=== PATIENT | male | born 1960 | race Caucasian/White ===

== ENCOUNTER → 2018-10-30 | Outpatient (CLI) | payer BC ==
[~2018-10-30] MED LIST: ASP81TEC PO; CALC-196 PO; CFR250T PO; CHOL200018 PO; FISH1CAP15 PO; HYDR1TAB PO; NIA500ERT PO; OMEP20TA2 PO; PRD1T PO; RED600TA PO; SIMV10TA3 PO; UBID10CA8 PO
--- NOTE | 2018-10-30 14:12 | Diagnostic Imaging Report ---
PROCEDURE: MR imaging cervical spine without contrast. TECHNIQUE: Multiplanar, multisequence MR imaging of the cervical spine was performed without contrast. INDICATION: Neck pain and stiffness. COMPARISON: No prior examinations are available for comparison. FINDINGS: The alignment of the cervical spine is normal. The vertebral body heights are well-maintained. The prevertebral soft tissues are within normal limits. The posterior fossa is unremarkable. The visualized portions of the spinal cord are normal signal intensity and morphology. C2-C3 is unremarkable. At C3-C4, there is some broad-based annular bulging as well as some spurring of the uncovertebral joints bilaterally. There is a posterior facet arthropathy. There is moderate spinal stenosis as well as wzlbpyyc-ya-tfudoq bilateral neural foraminal encroachment. At C4-C5, there is minimal annular bulging and some spurring of the uncovertebral joint on the left. There is slight effacement of the ventral thecal sac with moderate left neural foraminal encroachment. At C5-C6, there is minimal annular bulging and mild bilateral uncovertebral joint spurring. There is slight effacement of ventral thecal sac and hcny-ci-dzjmksfa neural foraminal encroachment. C6-C7 and C7-T1 are unremarkable. IMPRESSION: Cervical spondylosis and degenerative disc disease as described. Dictated by: Dictated on workstation # [id number]
== END ==
LOC: RAD 12:48
PROVIDERS: ATTEND Orthopaedic Surgery
DX: M50.10 Cervical disc disorder with radiculopathy, unspecified cervical region (principal); M47.22 Other spondylosis with radiculopathy, cervical region
CPT/HCPCS: 72141

== ENCOUNTER → 2019-01-07 | Outpatient (CLI) | payer BC ==
[2019-01-07 15:13] LABS: HEMATOCRIT 42 % (40-54); HEMOGLOBIN 14.4 G/DL (13.3-17.7); MEAN CORPUSCULAR HEMOGLOBIN 31 PG (25-34); MEAN CORPUSCULAR HGB CONC 35 G/DL (32-36); MEAN CORPUSCULAR VOLUME 89 FL (80-99); MEAN PLATELET VOLUME 9.3 FL (7.4-10.4); NEUTROPHILS % (AUTO) 51 % (42-75); PLATELET COUNT 276 10^3/uL (130-400); RED CELL DISTRIBUTION WIDTH 12.7 % (10.0-14.5)
[2019-01-07 15:14] LABS: BASOPHILS % (AUTO) 1 % (0-10); EOSINOPHILS # (AUTO) 0.1 10^3/uL (0.0-0.3); EOSINOPHILS % (AUTO) 1 % (0-10); LYMPHOCYTES # (AUTO) 2.6 X 10^3 (1.0-4.0); LYMPHOCYTES % (AUTO) 37 % (12-44); MONOCYTES # (AUTO) 0.7 X 10^3 (0.0-1.0); MONOCYTES % (AUTO) 10 % (0-12); NEUTROPHILS # (AUTO) 3.7 X 10^3 (1.8-7.8)
== END ==
LOC: LAB FS 15:03
PROVIDERS: ATTEND Family Medicine
DX: Z00.00 Encounter for general adult medical examination without abnormal findings (principal); D69.6 Thrombocytopenia, unspecified
CPT/HCPCS: 36415; 85025

== ENCOUNTER 2020-02-05 05:58 | Outpatient (RCR) | payer BC ==
[~2020-02-05] VITALS: Ht 175.3 cm; Wt 75.8 kg
[2020-02-05] MEDS ORDERED: FAMO20TA3 PO (10:38)
[2020-02-05] MEDS ORDERED: CHOL200014 PO (10:38)
[2020-02-05] MEDS ORDERED: OMEP20TA7 PO (10:38)
[2020-02-05] MEDS ORDERED: ASPI-999 PO (10:38)
== END 2020-02-09 11:09 | disposition home or self-care (01) ==
LOC: PREOP 05:58
PROVIDERS: ATTEND Surgery
DX: Z01.818 Encounter for other preprocedural examination (principal)

== ENCOUNTER → 2020-02-06 | Outpatient (CLI) | payer BC ==
[~2020-02-06] MED LIST changes: +ASPI-999 PO; +CHOL200014 PO; +FAMO20TA3 PO; +OMEP20TA7 PO; +OMEP40CA27 PO
== END ==
LOC: LAB FS 10:20
PROVIDERS: ATTEND Family Medicine
DX: K27.9 Peptic ulcer, site unspecified, unspecified as acute or chronic, without hemorrhage or perforation (principal); K21.9 Gastro-esophageal reflux disease without esophagitis; Z20.828 Contact with and (suspected) exposure to other viral communicable diseases
CPT/HCPCS: 87635

== ENCOUNTER 2020-02-11 10:17 | Day surgery (SDC) | payer BC ==
[~2020-02-11] VITALS: Ht 175.3 cm; Wt 75.8 kg
[~2020-02-11 10:17] MED LIST changes: -OMEP40CA27 PO
[2020-02-11] MEDS ORDERED: LACTATED RINGERS 1,000 ML IV ONE (10:21)
[2020-02-11] MEDS ORDERED: LACTATED RINGERS 1,000 ML IV STA (10:21)
[2020-02-11] MEDS ORDERED: HURRICAINE EXT TUBE (BENZOCAINE) XX PRN (10:30)
[2020-02-11] MEDS ORDERED: LIDOCAINE JELLY 2% 6 ML SYRINGE MM PRN (10:30)
--- NOTE | 2020-02-11 10:32 | Progress Note-Pre Operative ---
Pre-Operative Progress Note H&P Reviewed The H&P was reviewed, patient examined and no changes noted. Date Seen by Provider: Feb 11, 2020 Time Seen by Provider: 10: Date H&P Reviewed: Feb 11, 2020 Time H&P Reviewed: : Pre-Operative Diagnosis: GERD, rectal bleed, screening RHIANNON VILLA MD Feb 11, 2020 10:32
[2020-02-11 10:33] VITALS: BP 143/85
[2020-02-11] MEDS ORDERED: OMEP40CA27 PO (10:34)
--- NOTE | 2020-02-11 10:35 | Discharge Inst-Surgical ---
D/C Lap Instructions-ALLEN New, Converted, or Re-Newed RX: RX on Chart Follow Up Activity as tolerated High Fiber Diet 25g or more per day Avoid Alcohol, Caffeine, Spicy [place] and Acid foods. Drink 64 fluid oz or more of fluids per day. Symptoms to Report: Fever over 101 degree F, Nausea/Vomiting If any problems/questions: Contact your physician or go to Emergency Room RHIANNON VILLA MD Feb 11, 2020 10:35
[2020-02-11] MEDS ORDERED: HYDROcodone/APAP 5 MG/325 MG (LORTAB) TAB PO PRN (10:45)
[2020-02-11] MEDS ORDERED: ACETAMINOPHEN 325 MG TABLET PO PRN (10:45)
[2020-02-11] MEDS ORDERED: ONDANSETRON 4 MG/2 ML (SDV) Z0FRAN IVP PRN (10:45)
[2020-02-11] MEDS ORDERED: morphine INJ 10 MG/ML 1ML (SYR OR VIAL) IVP PRN ×2 (10:45)
--- OUTSIDE RECORDS SUMMARY | 2020-02-11 10:55 | XMS REPORT | Continuity of Care Document ---
Author Organization Unknown Address Unknown Phone Unavailable Allergies Active Description Code Type Severity Reaction Onset Reported/Identified Relationship to Patient Clinical Status Yes No Known Drug Allergies [id number] Drug Allergy Unknown N/A 09/15/2011 Medications There is no data. Problems Date Dx Coded Attending Type Code Diagnosis Diagnosed By 10/30/2018 MARCO HYLTON DO, Ot M47.22 OTHER SPONDYLOSIS WITH RADICULOPATHY, CE 10/30/2018 MARCO HYLTON DO, Ot M50.10 CERVICAL DISC DISORDER W RADICULOPATHY, 11/13/2018 MARCO HYLTON DO, Ot M47.22 OTHER SPONDYLOSIS WITH RADICULOPATHY, CE 11/13/2018 MARCO HYLTON DO, Ot M50.10 CERVICAL DISC DISORDER W RADICULOPATHY, 12/02/2018 MARCO HYLTON DO, Ot M47.22 OTHER SPONDYLOSIS WITH RADICULOPATHY, CE 12/02/2018 MARCO HYLTON DO, Ot M50.10 CERVICAL DISC DISORDER W RADICULOPATHY, 01/08/2019 SELF AMADOU OMER Ot D69.6 THROMBOCYTOPENIA, UNSPECIFIED 01/08/2019 SELF AMADOU OMER Ot Z00.00 ENCNTR FOR GENERAL ADULT MEDICAL EXAM W/ 01/27/2019 SELF AMADOU OMER Ot D69.6 THROMBOCYTOPENIA, UNSPECIFIED 01/27/2019 SELF AMADOU OMER Ot Z00.00 ENCNTR FOR GENERAL ADULT MEDICAL EXAM W/ Procedures There is no data. Results Test Result Range CBC w/MANUAL DIFF - 01/03/19 08:44 WHITE BLOOD CELL COUNT 6.1 Thousand/uL 3 .8-10.8 RED BLOOD CELL COUNT 4.86 Million/uL 4.2 0-5.80 HEMOGLOBIN 14.8 g/dL 13.2-17.1 HEMATOCRIT 43.4 % 38.5-50.0 MCV 89.3 fL 80.0-100.0 MCH 30.5 pg 27.0-33.0 MCHC 34.1 g/dL 32.0-36.0 RDW 12.9 % 11.0-15.0 PLATELET COUNT 21 Thousand/uL 140-400 MPV 10.8 fL 7.5-12.5 ABSOLUTE NEUTROPHILS 2135 cells/uL 1500- 7800 ABSOLUTE MONOCYTES 732 cells/uL 200-950 ABSOLUTE EOSINOPHILS 0 cells/uL 15-500 ABSOLUTE BASOPHILS 305 cells/uL 0-200 NEUTROPHILS 35.0 % NRG LYMPHOCYTES 46.0 % NRG MONOCYTES 12.0 % NRG EOSINOPHILS 0 % NRG BASOPHILS 5.0 % NRG ABSOLUTE BAND NEUTROPHILS 122 cells/uL 0 -750 ABSOLUTE LYMPHOCYTES 2806 cells/uL 850-3 900 BAND NEUTROPHILS 2.0 % NRG COMMENT(S) NRG Complete blood count (CBC) with automate d white blood cell (WBC) differential - 01/07/19 15:00 Blood leukocytes automated count (number/volume) 8.0 10*3/uL 4.3-11.0 Blood erythrocytes automated count (number/volume) 4.70 10*6/uL 4.35-5.85 Venous blood hemoglobin measurement (mass/volume) 14.4 g/dL 13.3-17.7 Blood hematocrit (volume fraction) 42 % 40-54 Automated erythrocyte mean corpuscular volume 89 [ foz_us] 80-99 Automated erythrocyte mean corpuscular h emoglobin (mass per erythrocyte) 31 pg 25-34 Automated erythrocyte mean corpuscular h emoglobin concentration measurement (mass/volume) 35 g/dL 32-36 Automated erythrocyte distribution width ratio 12. 7 % 10.0- 14.5 Automated blood platelet count (count/volume) 276 10*3/uL 130-400 Automated blood platelet mean volume measurement 9.3 [foz_us] 7.4-10.4 Automated blood neutrophils/100 leukocytes 51 % 42-75 Automated blood lymphocytes/100 leukocytes 37 % 12-44 Blood monocytes/100 leukocytes 10 % 0-12 Automated blood eosinophils/100 leukocytes 1 % 0-10 Automated blood basophils/100 leukocytes 1 % 0-10 Blood neutrophils automated count (number/volume) 3.7 10*3 1.8-7.8 Blood lymphocytes automated count (number/volume) 2.6 10*3 1.0-4.0 Blood monocytes automated count (number/volume) 0. 7 10*3 0.0-1.0 Automated eosinophil count 0.1 10*3/uL 0 .0-0.3 Automated blood basophil count (count/volume) 0.0 10*3/uL 0.0-0.1 Encounters ACCT No. Visit Date/Time Discharge Status Pt. Type Provider Facility Loc./Unit Complaint [id number] 01/07/2019 13:45:00 01/07/2019 23:59: 59 CLS Out[facility] [id number] 01/03/2019 08:15:00 Document Registration [id number] 02/05/2020 05:58:00 11:09:00 DIS Outpatient RHIANNON VILLA MD [facility] PREOP COLONOSCOPY/EGD [id number] 02/06/2020 10:20:00 23:59:59 CLS Outpatient AMADOU SEBASTIAN MD [facility] LAB FS COBID SWAB [id number] 01/07/2019 15:03:00 23:59:59 CLS Outpatient SELF AMADOU OMER [facility] LAB FS D696 [id number] 10/30/2018 12:48:00 23:59:59 CLS Outpatient MARCO HYLTON DO [facility] RAD RADICULOPATHY M54.12 [id number] 02/11/2020 11:00:00 P EN Preadmit RHIANNON VILLA MD [facility] [place] ENDO SCREENING/EPIGASTRIC PAIN/GE RD/PUD
[2020-02-11] MEDS ORDERED: HURRICAINE EXT TUBE (BENZOCAINE) ONE (11:01)
[2020-02-11] MEDS ORDERED: MIDAZOLAM 2 MG/2 ML (VERSED) VIAL ONE (11:01)
[2020-02-11] MEDS ORDERED: PROPOFOL INJECTION 50 ML IV ONE ×2 (11:01→11:26)
[2020-02-11] MEDS ORDERED: LIDOCAINE JELLY 2% 6 ML SYRINGE ONE (11:08)
[2020-02-11] MEDS ORDERED: KETAMINE/NaCl 50 MG/5 ML SYRINGE (ED ONLY) ONE (11:10)
[2020-02-11 11:45] VITALS: BP 109/68
[2020-02-11 11:50] VITALS: BP 110/69
[2020-02-11 12:20] VITALS: BP 142/92
[2020-02-11 12:35] VITALS: BP 142/92
--- NOTE | 2020-02-11 12:37 | Progress Note-Post Operative ---
Post-Operative Progess Note Surgeon (s)/[employer] (s) Surgeon RHIANNON VILLA MD [employer]: none Pre-Operative Diagnosis GERD, rectal bleed, screening Post-Operative Diagnosis reflux esophagitis(stage 2), small HH(1.5cm), moderate gastritis. chronic stage 2 ext and stage 3 int hemorrhoids. Procedure & Operative Findings Date of Procedure 02/11/20 Procedure Performed/Findings EGD with bx. Colonoscopy. Anesthesia Type mac Estimated Blood Loss Estimated blood loss (mL): minimal Specimens/Packing Specimens Removed ge jxn, antrum RHIANNON VILLA MD Feb 11, 2020 12:37
--- NOTE | 2020-02-11 14:18 | Anesthesia-General Post-Op ---
MAC Patient Condition Mental Status/LOC: Same as Preop Cardiovascular: Satisfactory Nausea/Vomiting: Absent Respiratory: Satisfactory Pain: Controlled Complications: Absent Post Op Complications Complications None Follow Up Care/Instructions Patient Instructions None needed. Anesthesiology Discharge Order Discharge Order Patient is doing well, no complaints, stable vital signs, no apparent adverse anesthesia problems. No complications reported per nursing. DAY BLANKENSHIP NET COORDINATOR Feb 11, 2020 14:18
--- NOTE | 2020-02-11 20:55 | OPERATIVE REPORT ---
DATE OF SERVICE: 02/11/2020 PREOPERATIVE DIAGNOSES: Gastroesophageal reflux disease, screening colonoscopy. Rectal bleed, screening colonoscopy. POSTOPERATIVE DIAGNOSES: Reflux esophagitis stage II, small hiatal hernia 1.5 cm in size, mild to moderate gastritis. No distal obstructions. Chronic stage II external hemorrhoids, chronic stage III internal hemorrhoids. Remainder of the rectum and colon were normal. PROCEDURE: EGD with biopsy, colonoscopy. SURGEON: Rhiannon Villa MD ANESTHESIA: Monitored anesthesia care. ESTIMATED BLOOD LOSS: Minimal. FINDINGS: Reflux esophagitis stage II, small hiatal hernia 1.5 cm in size, mild to moderate gastritis. No distal obstructions. Chronic stage II external hemorrhoids, chronic stage III internal hemorrhoids. Remainder of the rectum and colon were normal. DISPOSITION: The patient tolerated the procedure well. INDICATIONS: The patient is a 59-year-old male known to us. He has a history of gastroesophageal reflux disease and peptic ulcer disease. He reports that he has had some hypopharyngeal irritation and increased phlegm on intermittent basis. We did his last EGD and colonoscopy 12/2009 and then an EGD 07/2012 with chronic pharyngitis, reflux esophagitis as well as a mild gastritis. He states that he has had some epigastric burning sensation. He does not report any episodes of nausea, no vomiting, no hematemesis. He is currently taken omeprazole and Pepcid. He reports the caffeine, spicy, greasy and acidic foods do make his symptoms worse. He also does report that he has had some small amounts of blood in the stool. He is also in need of a followup colonoscopy due to timing. He does not report any family history of colon cancer. DESCRIPTION OF PROCEDURE: The patient was brought to the endoscopy suite, laid in the left lateral decubitus position. After adequate IV pain and sedated medications and monitored anesthesia care, the mouthpiece was applied. Endoscope was then placed in the mouth, visualized the pharynx and hypopharyngeal region. The endoscope was then intubated at the esophageal opening and esophagus insufflated. The endoscope was then advanced through the first, second and third portion of the esophagus at the level of the GE junction, a reflux esophagitis stage II identified. There were no ulcers or strictures identified in this region. A biopsy was taken with forceps with visualization of good hemostasis. The endoscope was then advanced into the stomach and endoscope retroflexed, visualizing a small hiatal hernia approximately 1.5 cm in size. There was a mild to moderate gastritis. No formal ulcerations, polyps, or any neoplasms identified. A biopsy was taken of the antrum to rule out H. pylori with visualization of good hemostasis. The endoscope was then advanced through the pylorus and the first and second portions of the duodenum, which appeared normal with no distal obstructions. The endoscope was then slowly withdrawn while taking a second look and suctioning of residual air with no additional findings. We then proceeded with the colonoscopy portion of the procedure. A digital rectal examination was performed, which revealed chronic stage II external hemorrhoids and with the endoscope in, chronic stage III internal hemorrhoids, most likely the causative agent of his intermittent rectal bleeding. No palpable masses identified and the prostate gland was palpable and appeared normal. The endoscope was then intubated to the anus and rectum gently insufflated. The endoscope was then advanced through the valves of Romero of the rectum with no polyps or any neoplasms identified. Through the sigmoid colon, there were no diverticulosis identified. The endoscope was then advanced through the remainder of the descending, transverse and ascending colon to the cecum. These segments were normal. There were no polyps or any neoplasms identified. The endoscope was then slowly withdrawn while taking a second look and suctioning of residual air with no additional findings. The patient tolerated the procedure well. We will have him proceed with the necessary lifestyle and diet accommodation for the reflux esophagitis, small hiatal hernia, which would entail small and more frequent meals, avoidance of eating at night as well as head elevation while lying supine. His PPI acid flanger may have become less effective over time and we will increase the dosing to omeprazole 40 mg daily. For his lower gastrointestinal tract and stage III internal hemorrhoids, we will recommend incorporation of high fiber diet with at least 30 grams of fiber daily as well as significant amounts of water to promote soft stools on a daily basis. If stools are consistently soft on a regular basis, the pressure throughout the rectum and anus during defecation should decrease and prevent any further bleeding. Job ID: [id number] DocumentID: [id number] Dictated Date: 02/11/2020 11:49:05 Ranch Supervisor Date: 02/11/2020 20:54:44 Dictated By: RHIANNON VILLA MD
== END 2020-02-11 12:35 | disposition home or self-care (01) ==
LOC: ENDO 10:17
PROVIDERS: ATTEND Surgery
DX: K29.50 Unspecified chronic gastritis without bleeding (principal); K21.0 Gastro-esophageal reflux disease with esophagitis; K44.9 Diaphragmatic hernia without obstruction or gangrene; K92.1 Melena; K64.1 Second degree hemorrhoids; K64.2 Third degree hemorrhoids; Z79.82 Long term (current) use of aspirin; Z79.899 Other long term (current) drug therapy; Z87.11 Personal history of peptic ulcer disease; Z83.3 Family history of diabetes mellitus; Z80.0 Family history of malignant neoplasm of digestive organs

== ENCOUNTER → 2021-07-26 | Outpatient (CLI) | payer BC ==
[~2021-07-26] MED LIST changes: +OMEP40CA6 PO
--- NOTE | 2021-07-26 12:35 | Diagnostic Imaging Report ---
INDICATION: Hyperlipidemia CT cardiac calcium scoring study performed with images of the heart without contrast, followed by calculation of cardiac scarring. Raw data images demonstrate no aortic aneurysm. There is no mediastinal adenopathy. Visualized portions of the lung dubon were clear, the entirety of the lungs are not included on the study. There was no significant coronary artery calcification. CT cardiac calcium score was 0 in all territories. IMPRESSION: Negative study. CT cardiac calcium score was 0. Dictated by: Dictated on workstation # [id number]
== END ==
LOC: RAD FS 11:03
PROVIDERS: ATTEND Family Medicine
DX: E78.5 Hyperlipidemia, unspecified (principal)
CPT/HCPCS: 75571

== ENCOUNTER 2021-08-16 18:38 | Emergency (ER) | payer BC ==
[~2021-08-16] VITALS: Ht 175 cm; Wt 74.0 kg
[2021-08-16 18:45] VITALS: BP 146/76
--- NOTE | 2021-08-16 19:37 | ED Cardiac General ---
History of Present Illness General Chief Complaint: Cardiac/General Problems Stated Complaint: IRR HEART RATE Nursing Triage Note: ARRIVED VIA AMB TO ROOM 08 WITH PALPITATIONS X2 DAYS. COMPLAINS OF A ACHE IN UPPER LEFT CHEST. Source: patient Exam Limitations: no limitations History of Present Illness Date Seen by Provider: Aug 16, 2021 Time Seen by Provider: 19:13 Initial Comments Patient to the ER by private conveyance with his chief complaint that about 10:00 this morning he had about 1/2-hour couple episodes of palpitations and funny feeling on the left side of his chest. He is not having any pain shortness of air or weakness. Is not postural. He follows with . Self does not have a known history of dysrhythmia but his mother and sister both have atrial tachycardia in the past. Patient went to urgent care and had an EKG that showed a sinus arrhythmia and was encouraged to come here for labs. He had blood work at the end of June that he brought with him as well as a CT coronary calcium score of zero about a month ago. He has a history of GERD and is on antacid medicine. He had a EGD by Dr. Regalado 2 years ago which showed mild gastritis. He is not a smoker and denies hyperlipidemia. He is on lisinopril for hypertension. No diabetes. Allergies and Home Medications Allergies Coded Allergies: No Known Drug Allergies (Unverified , 09/15/11) Patient Home Medication List Home Medication List Reviewed: Yes Aspirin (Aspirin) 81 Mg Tab.chew, 81 MG PO DAILY, (Reported) Entered as Reported by: ADRIANA PEARSON on 02/05/20 1038 Cholecalciferol (Vitamin D3) (Vitamin D3) 50 Mcg Tablet, 50 MCG PO DAILY, (Reported) Entered as Reported by: ADRIANA PEARSON on 02/05/20 1038 Famotidine (Acid Snow Groomer (FAMOTIDINE)) 20 Mg Tablet, 20 MG PO DAILY, (Reported) Entered as Reported by: ADRIANA PEARSON on 02/05/20 1038 Omeprazole (Omeprazole) 20 Mg Tablet., 20 MG PO DAILY, (Reported) Entered as Reported by: ADRIANA PEARSON on 02/05/20 1038 Omeprazole (Omeprazole) 40 Mg Capsule., 40 MG PO DAILY Prescribed by: RHIANNON REGALADO on 7/22/20 1034 Review of Systems Review of Systems Constitutional: No chills, No diaphoresis EENTM: No Blurred Vision, No Double Vision Respiratory: Denies Cough, Denies Shortness of Air Cardiovascular: Denies Chest Pain, Denies Lightheadedness Gastrointestinal: Denies Constipated, Denies Diarrhea, Denies Nausea Genitourinary: Denies Burning Musculoskeletal: No back pain, No joint pain Skin: No pruritus, No rash Psychiatric/Neurological: Denies Anxiety, Denies Depressed All Other Systems Reviewed Negative Unless Noted: Yes Past Xziesbz-Rieopg-Ahajpi Hx Patient Social History Tobacco Use?: No Substance use?: No Alcohol Frequency: Once in a while Seasonal Allergies Seasonal Allergies: No Past Medical History Surgeries: Yes (left knee scope, vocal cord lesion x2 removed) Respiratory: No Cardiac: No Neurological: No Reproductive Disorders: No Genitourinary: No Gastrointestinal: Yes Gastroesophageal Reflux, Ulcer Musculoskeletal: No Endocrine: No HEENT: No Cancer: No Psychosocial: No Integumentary: No Blood Disorders: No Physical Exam Vital Signs Vital Signs - First Documented 08/16/21 18:45 Temp 36.3 Pulse 81 Resp 16 B/P (MAP) 146/76 (99) Pulse Ox 96 O2 Delivery Room Air Capillary Refill : Less Than 3 Seconds Height, Weight, BMI Height: '" Weight: lbs. oz. kg; 24.00 BMI Method: General Appearance: No Apparent Distress, WD/WN HEENT: PERRL/EOMI, Pharynx Normal, Moist Mucous Membranes Neck: Full Range of Motion, Normal Inspection Respiratory: Chest Non Tender, Lungs Clear, Normal Breath Sounds, No Accessory Muscle Use, No Respiratory Distress Cardiovascular: Regular Rate, Rhythm, No Edema, Normal Peripheral Pulses Gastrointestinal: Normal Bowel Sounds, No Organomegaly, Non Tender, Soft Extremity: Normal Capillary Refill, Normal Inspection Neurologic/Psychiatric: Alert, Oriented x3 Skin: Normal Color, Warm/Dry Progress/Results/Core Measures Results/Orders Lab Results Laboratory Tests Test 08/16/21 20:35 08/16/21 22:39 Range/Units White Blood Count 4.9 4.3-11.0 10^3/uL Red Blood Count 4.80 4.30-5.52 10^6/uL Hemoglobin 14.7 13.3-17.7 g/dL Hematocrit 42 40-54 % Mean Corpuscular Volume 88 80-99 fL Mean Corpuscular Hemoglobin 31 25-34 pg Mean Corpuscular Hemoglobin Concent 35 32-36 g/dL Red Cell Distribution Width 12.4 10.0-14.5 % Platelet Count 71 L 130-400 10^3/uL Mean Platelet Volume 11.4 9.0-12.2 fL Immature Granulocyte % (Auto) 0 % Neutrophils (%) (Auto) 47 42-75 % Lymphocytes (%) (Auto) 41 12-44 % Monocytes (%) (Auto) 11 0-12 % Eosinophils (%) (Auto) 0 0-10 % Basophils (%) (Auto) 0 0-10 % Neutrophils # (Auto) 2.3 1.8-7.8 10^3/uL Lymphocytes # (Auto) 2.0 1.0-4.0 10^3/uL Monocytes # (Auto) 0.6 0.0-1.0 10^3/uL Eosinophils # (Auto) 0.0 0.0-0.3 10^3/uL Basophils # (Auto) 0.0 0.0-0.1 10^3/uL Immature Granulocyte # (Auto) 0.0 0.0-0.1 10^3/uL Sodium Level 138 135-145 MMOL/L Potassium Level 4.2 3.6-5.0 MMOL/L Chloride Level 107 98-107 MMOL/L Carbon Dioxide Level 20 L 21-32 MMOL/L Anion Gap 11 5-14 MMOL/L Blood Urea Nitrogen 12 7-18 MG/DL Creatinine 0.76 0.60-1.30 MG/DL Estimat Glomerular Filtration Rate 103 BUN/Creatinine Ratio 16 Glucose Level 94 70-105 MG/DL Calcium Level 9.2 8.5-10.1 MG/DL Corrected Calcium 9.1 8.5-10.1 MG/DL Magnesium Level 2.3 1.6-2.4 MG/DL Total Bilirubin 0.5 0.1-1.0 MG/DL Aspartate Amino Transf (AST/SGOT) 23 5-34 U/L Alanine Aminotransferase (ALT/SGPT) 41 0-55 U/L Alkaline Phosphatase 61 40-136 U/L Troponin I < 0.028 < 0.028 <0.028 NG/ML C-Reactive Protein High Sensitivity 0.05 0.00-0.50 MG/DL Total Protein 6.9 6.4-8.2 GM/DL Albumin 4.1 3.2-4.5 GM/DL My Orders Orders - WILFRIDO PHELAN Continuous Ekg Monitoring (08/16/21 18:48) Ekg Tracing (08/16/21 18:48) Cbc With Automated Diff (08/16/21 19:24) Comprehensive Metabolic Panel (08/16/21 19:24) Troponin I Renea (08/16/21 19:24) Hs C Reactive Protein (08/16/21 19:24) Magnesium (08/16/21 19:24) Chest 1 View, Ap/Pa Only (08/16/21 19:24) Vital Signs/I&O 08/16/21 18:45 Temp 36.3 Pulse 81 Resp 16 B/P (MAP) 146/76 (99) Pulse Ox 96 O2 Delivery Room Air Blood Pressure Mean: 99 Progress Progress Note : Time: 19:38 Progress Note Suspect patient has a dysrhythmia. Her EKG looks normal and he looks normal on the monitor so we'll keep him on there for the next hour we'll recheck some electrolytes and troponin. If this troponin is negative then we'll let him go home and follow-up with a statistical typist for outpatient rhythm studies Initial ECG Impression Date: Aug 16, 2021 Initial ECG Impression Time: 18:49 Initial ECG Rate: 72 Initial ECG Rhythm: Normal Sinus Initial ECG Intervals: Normal Initial ECG Impression: Normal, Nonspecific Changes Initial ECG Comparisson: No Previous ECG Available Comment Normal sinus rhythm without clinically relevant ST elevation or depression Diagnostic Imaging Diagonstic Imaging: Xray Plain Films/CT/US/NM/MRI: chest Comments [facility] [place] [place] NAME: RAIN LIVE [facility] REC#: [id number] PT STATUS: REG ER : 1960 PHYSICIAN: WILRFIDO PHELAN MD ADMIT DATE: 08/16/21/ER Signed Date of Exam:08/16/21 CHEST 1 VIEW, AP/PA ONLY INDICATION: Palpitations FINDINGS: The lungs are clear. No failure, effusion or pneumothorax. No free air beneath the diaphragms. IMPRESSION: Negative Dictated by: Dictated on workstation # [id number] Dict: 08/16/211945 Trans: 08/16/212014 CHANTAL [id number] Interpreted by: RAFA PEARL Electronically signed by: RAFA PEARL 08/16/212014 Reviewed: Reviewed by Me Departure Impression Primary Impression: Palpitations with regular cardiac rhythm Disposition: HOME, SELF-CARE Condition: Stable Departure-Patient Inst. Decision time for Depature: 23:11 Referrals: JEZ DEVINE JR, MD SELF, MAXWELL MD (PCP/Family) Primary Care Physician Patient Instructions: Palpitations (DC) Add. Discharge Instructions: Speak to your primary care doctor about a referral to a statistical typist. You may also follow-up with Dr. Devine by calling for an appointment in the next 1 to 2 weeks for a work-up for dysrhythmias. Return to the nearest ER if you are having chest pain, worsening symptoms that are persistent All discharge instructions reviewed with patient and/or family. Voiced understanding. Copy Copies To 1: JEZ DEVINE JR, MD; AMADOU SEBASTIAN MD, TITUS J Aug 16, 2021 19:37
--- NOTE | 2021-08-16 20:09 | Diagnostic Imaging Report ---
INDICATION: Palpitations FINDINGS: The lungs are clear. No failure, effusion or pneumothorax. No free air beneath the diaphragms. IMPRESSION: Negative Dictated by: Dictated on workstation # [id number]
[2021-08-16 20:45] LABS: BASOPHILS % (AUTO) 0 % (0-10); EOSINOPHILS % (AUTO) 0 % (0-10); HEMATOCRIT 42 % (40-54); HEMOGLOBIN 14.7 g/dL (13.3-17.7); LYMPHOCYTES % (AUTO) 41 % (12-44); MEAN CORPUSCULAR HEMOGLOBIN 31 pg (25-34); MEAN CORPUSCULAR HGB CONC 35 g/dL (32-36); MEAN CORPUSCULAR VOLUME 88 fL (80-99); MEAN PLATELET VOLUME 11.4 fL (9.0-12.2); MONOCYTES # (AUTO) 0.6 10^3/uL (0.0-1.0); MONOCYTES % (AUTO) 11 % (0-12); NEUTROPHILS # (AUTO) 2.3 10^3/uL (1.8-7.8); NEUTROPHILS % (AUTO) 47 % (42-75); PLATELET COUNT 71 10^3/uL (130-400); WHITE BLOOD COUNT 4.9 10^3/uL (4.3-11.0)
[2021-08-16 21:07] LABS: ALANINE AMINOTRANSFERASE 41 U/L (0-55); ALBUMIN 4.1 GM/DL (3.2-4.5); ALKALINE PHOSPHATASE 61 U/L (40-136); BILIRUBIN,TOTAL 0.5 MG/DL (0.1-1.0); BUN/CREATININE RATIO 16; CALCIUM 9.2 MG/DL (8.5-10.1); CARBON DIOXIDE 20 MMOL/L (21-32); CHLORIDE 107 MMOL/L (98-107); CREATININE SERUM 0.76 MG/DL (0.60-1.30); GFR ESTIMATED 103; GLUCOSE 94 MG/DL (70-105); MAGNESIUM 2.3 MG/DL (1.6-2.4); POTASSIUM 4.2 MMOL/L (3.6-5.0); SODIUM 138 MMOL/L (135-145); TOTAL PROTEIN 6.9 GM/DL (6.4-8.2)
== END 2021-08-16 23:32 | disposition home or self-care (01) ==
LOC: EDUNIT# 18:38 → ER 18:43
DX: R00.2 Palpitations (principal); K21.9 Gastro-esophageal reflux disease without esophagitis; Z79.82 Long term (current) use of aspirin; Z79.899 Other long term (current) drug therapy
CPT/HCPCS: 36415; 71045; 80053; 83735; 84484; 85025; 86141; 93005